=== PATIENT | female | born 1945 | race Caucasian/White ===

== ENCOUNTER → 2018-07-06 | Outpatient (CLI) | payer MEDICARE ==
[~2018-07-06] MED LIST: None per pt
[2018-07-06 11:47] LABS: MICROSCOPIC AUTO
[2018-07-06 11:48] LABS: CULTURE INDICATED? NO
[2018-07-06 11:48] LABS: BASOPHILS # (AUTO) 0.04 x10^3/uL (0-0.1); BASOPHILS % (AUTO) 1 % (0-1); EOSINOPHILS # (AUTO) 0.12 x10^3/uL (0-0.4); EOSINOPHILS % (AUTO) 2 % (1-7); LYMPHOCYTES # (AUTO) 1.75 x10^3/uL (1-3.4); LYMPHOCYTES % (AUTO) 29 % (22-44); MD NO; MEAN CORPUSCULAR HEMOGLOBIN 32.3 pg (27.0-34.8); MEAN CORPUSCULAR HGB CONC 33.9 g/dL (32.4-35.8); MEAN CORPUSCULAR VOLUME 95.3 fL (80-100); MEAN PLATELET VOLUME 9.4 fL (7.4-10.4); MONOCYTES # (AUTO) 0.42 x10^3/uL (0.2-0.8); MONOCYTES % (AUTO) 7 % (2-9); NEUTROPHILS # (AUTO) 3.61 x10^3/uL (1.8-6.8); NEUTROPHILS % (AUTO) 61 % (42-75); PLATELET COUNT 233 x10^3/uL (130-400); RED BLOOD COUNT 4.28 x10^6/uL (3.82-5.3); RED CELL DISTRIBUTION WIDTH 12.8 % (9.6-15.2)
[2018-07-06 11:59] LABS: INTERNATIONAL NORMALIZED RATIO 0.95 (0.93-1.1)
[2018-07-06 12:30] LABS: ANION GAP 6 mmol/L (5-15); CALCIUM 9.2 mg/dL (8.5-10.1); CHLORIDE 112 mmol/L (98-107); CREATININE 1.54 mg/dL (0.55-1.02)
== END | disposition home or self-care (01) ==
LOC: STAR 10:18
PROVIDERS: ATTEND Neurological Surgery
DX: Z01.818 Encounter for other preprocedural examination (principal); M48.061 Spinal stenosis, lumbar region without neurogenic claudication; R79.1 Abnormal coagulation profile
CPT/HCPCS: 36415; 71046; 80048; 81001; 85025; 85610; 85730; 93005

== ENCOUNTER 2018-07-15 08:25 | Inpatient (IN) | payer MEDICARE ==
[~2018-07-15] VITALS: Ht 165.1 cm; Wt 64.7 kg
[~2018-07-15 08:25] MED LIST changes: +BACITRACIN 50,000 UNIT ONE; +BUPIVACAINE 0.25% ONE; +BUPIVACAINE/PF-EPI 0.5% 1:200K ONE; +THROMBIN 5,000 UNIT VIAL TP ONE
[2018-07-15] MEDS ORDERED: LACTATED RINGERS 1,000 ML IV SCH (08:46)
[2018-07-15] MEDS ORDERED: GABAPENTIN 300 MG CAPSULE PO ONE (09:00)
[2018-07-15] MEDS ORDERED: ACETAMINOPHEN 500 MG TABLET PO ONE (09:00)
[2018-07-15 09:15] VITALS: BP 151/84
[2018-07-15] MEDS ORDERED: FENTANYL PF 250 MCG/5ML ONE (10:23)
[2018-07-15] MEDS ORDERED: PHENYLEPHRINE 10 MG/ML ONE (11:05)
[2018-07-15] MEDS ORDERED: SUCCINYLCHOLINE 20 MG/ML, 10ML ONE (11:05)
[2018-07-15] MEDS ORDERED: ROCURONIUM 10 MG/ML,10ML ONE (11:05)
[2018-07-15] MEDS ORDERED: FENTANYL PF 100 MCG/2ML ONE ×2 (12:06→13:01)
[2018-07-15] MEDS ORDERED: BUPIVACAINE/PF 0.25% EPIDPUSH ONE (12:08)
[2018-07-15] MEDS ORDERED: FENTANYL PF 100 MCG/2ML EPIDPUSH ONE (12:08)
[2018-07-15] MEDS ORDERED: hydrALAzine 20 MG/ML, 1ML IV PRN (12:30)
[2018-07-15] MEDS ORDERED: OXYcodone 5 MG/5 ML ORAL.SOL UDC PO PRN (12:30)
[2018-07-15] MEDS ORDERED: METOPROLOL 1 MG/ML, 5ML IV PRN (12:30)
[2018-07-15] MEDS ORDERED: MIDAZOLAM 1 MG/ML, 2ML IV PRN (12:30)
[2018-07-15] MEDS ORDERED: PROMETHAZINE 25 MG/ML, 1ML IV PRN (12:30)
[2018-07-15] MEDS ORDERED: ONDANSETRON 2MG/ML, 2ML IV PRN (12:30)
[2018-07-15] MEDS ORDERED: HYDROmorphone 2 MG/ML, 1ML IVPush PRN (12:30)
[2018-07-15] MEDS ORDERED: MEPERIDINE/PF 25MG/0.5ML IVPush PRN (12:30)
[2018-07-15] MEDS ORDERED: ALBUTEROL/IPRATROPIUM 2.5MG/0.5MG, 3 ML NPPB PRN (12:30)
[2018-07-15] MEDS ORDERED: PROPOFOL 10 MG/ML, 20ML ONE (12:41)
[2018-07-15] MEDS ORDERED: CEFAZOLIN 1,000 MG ONE (12:41)
[2018-07-15] MEDS ORDERED: DEXAMETHASONE 4 MG/ML, 1ML ONE (12:41)
[2018-07-15] MEDS ORDERED: ONDANSETRON 2MG/ML, 2ML ONE ×2 (12:41→12:55)
[2018-07-15] MEDS ORDERED: SENNA/DOCUSATE TABLET PO PRN (13:00)
[2018-07-15] MEDS ORDERED: MAGNESIUM HYDROXIDE 8%, 30ML UDC PO PRN (13:00)
[2018-07-15] MEDS ORDERED: HYDROcodone/APAP 10/325 MG TABLET PO PRN (13:00)
[2018-07-15] MEDS ORDERED: ONDANSETRON 2MG/ML, 2ML IVPush PRN (13:00)
[2018-07-15] MEDS ORDERED: METHOCARBAMOL 750 MG TABLET PO PRN (13:00)
[2018-07-15] MEDS ORDERED: PHARMACY MAY ADJ FOR RENAL FX MC PRN (13:00)
[2018-07-15] MEDS ORDERED: HYDROcodone/APAP 5/325 TABLET PO PRN (13:00)
[2018-07-15] MEDS ORDERED: DIPHENHYDRAMINE 50 MG/ML, 1ML IVPush PRN (13:00)
[2018-07-15] MEDS ORDERED: BISACODYL 10 MG SUPP PR PRN (13:00)
[2018-07-15] MEDS ORDERED: PROMETHAZINE 25 MG/ML, 1ML IM PRN (13:00)
[2018-07-15] MEDS: FENTANYL PF 100 MCG/2ML IV PRN ×2 (13:03→13:16)
[2018-07-15] MEDS ORDERED: OXYcodone 5 MG/5 ML ORAL.SOL UDC ONE (13:23)
[2018-07-15] MEDS ORDERED: HYDROmorphone 2 MG/ML, 1ML ONE (13:33)
[2018-07-15] MEDS ORDERED: ENOXAPARIN 40 MG/0.4 ML SQ SCH (15:00)
[2018-07-15] MEDS: D5%-0.9% NACL+KCL 20MEQ 1,000 ML IV SCH (15:25)
[2018-07-15] MEDS: OXYcodone/APAP 5/325MG TABLET PO PRN ×2 (15:25→20:36)
[2018-07-15 18:45] VITALS: BP 145/80
[2018-07-15] MEDS: CEFAZOLIN PMX 1GM/50ML 50 ML IVPB SCH (19:27)
[2018-07-15] MEDS: SODIUM CHLORIDE FLUSH 10ML SYR IVF SCH (20:36)
[2018-07-15] MEDS: morphine SULFATE 10 MG/ML, 1ML IVPush PRN (23:14)
[2018-07-16 00:03] VITALS: BP 123/68
[2018-07-16] MEDS: morphine SULFATE 10 MG/ML, 1ML IVPush PRN ×3 (01:41→21:15)
[2018-07-16] MEDS: CEFAZOLIN PMX 1GM/50ML 50 ML IVPB SCH (03:38)
[2018-07-16 04:56] VITALS: BP 130/70
[2018-07-16] MEDS: D5%-0.9% NACL+KCL 20MEQ 1,000 ML IV SCH ×2 (04:59→15:40)
[2018-07-16 07:03] VITALS: BP 98/56
[2018-07-16] MEDS: OXYcodone/APAP 5/325MG TABLET PO PRN ×2 (10:00→23:12)
[2018-07-16] MEDS: METHOCARBAMOL 750 MG TABLET PO SCH ×2 (10:00→17:30)
[2018-07-16] MEDS: SODIUM CHLORIDE FLUSH 10ML SYR IVF SCH ×2 (10:01→21:16)
[2018-07-16 10:56] LABS: BASOPHILS # (AUTO) 0.03 x10^3/uL (0-0.1); BASOPHILS % (AUTO) 0 % (0-1); EOSINOPHILS # (AUTO) 0.01 x10^3/uL (0-0.4); EOSINOPHILS % (AUTO) 0 % (1-7); LYMPHOCYTES # (AUTO) 1.95 x10^3/uL (1-3.4); LYMPHOCYTES % (AUTO) 17 % (22-44); MD NO; MEAN CORPUSCULAR HEMOGLOBIN 31.9 pg (27.0-34.8); MEAN CORPUSCULAR HGB CONC 32.9 g/dL (32.4-35.8); MEAN CORPUSCULAR VOLUME 97.2 fL (80-100); MEAN PLATELET VOLUME 9.8 fL (7.4-10.4); MONOCYTES # (AUTO) 0.73 x10^3/uL (0.2-0.8); MONOCYTES % (AUTO) 6 % (2-9); NEUTROPHILS # (AUTO) 8.99 x10^3/uL (1.8-6.8); NEUTROPHILS % (AUTO) 77 % (42-75); PLATELET COUNT 215 x10^3/uL (130-400); RED BLOOD COUNT 3.75 x10^6/uL (3.82-5.3); RED CELL DISTRIBUTION WIDTH 13.3 % (9.6-15.2)
[2018-07-16 11:02] LABS: ANION GAP 4 mmol/L (5-15); CALCIUM 8.4 mg/dL (8.5-10.1); CHLORIDE 118 mmol/L (98-107); CREATININE 1.64 mg/dL (0.55-1.02)
[2018-07-16 13:31] VITALS: BP 122/68
[2018-07-16 19:06] VITALS: BP 179/93
[2018-07-17 01:07] VITALS: BP 98/58
[2018-07-17] MEDS: METHOCARBAMOL 750 MG TABLET PO SCH ×3 (01:20→18:10)
[2018-07-17] MEDS: D5%-0.9% NACL+KCL 20MEQ 1,000 ML IV SCH ×2 (05:00→18:10)
[2018-07-17] MEDS: ENOXAPARIN 30 MG/0.3 ML SQ SCH (06:31)
[2018-07-17 06:45] VITALS: BP 120/60
[2018-07-17] MEDS: SODIUM CHLORIDE FLUSH 10ML SYR IVF SCH ×2 (09:41→20:29)
[2018-07-17] MEDS: OXYcodone/APAP 5/325MG TABLET PO PRN ×2 (09:53→20:28)
[2018-07-17 10:43] LABS: CREATININE 1.76 mg/dL (0.55-1.02)
[2018-07-17 12:58] VITALS: BP 125/57
[2018-07-17 18:37] VITALS: BP 148/74
[2018-07-18] MEDS: METHOCARBAMOL 750 MG TABLET PO SCH ×2 (01:50→08:48)
[2018-07-18 02:21] VITALS: BP 100/55
[2018-07-18] MEDS: ENOXAPARIN 30 MG/0.3 ML SQ SCH (06:09)
[2018-07-18 07:29] VITALS: BP 146/73
[2018-07-18] MEDS: D5%-0.9% NACL+KCL 20MEQ 1,000 ML IV SCH (07:40)
[2018-07-18] MEDS: SODIUM CHLORIDE FLUSH 10ML SYR IVF SCH (08:48)
[2018-07-18] MEDS ORDERED: METH750T87 PO (08:58)
[2018-07-18] MEDS ORDERED: OXYC-302 PO (08:58)
[2018-07-18] MEDS ORDERED: CEPH-368 PO (08:58)
[2018-07-18] MEDS: OXYcodone/APAP 5/325MG TABLET PO PRN (10:14)
[2018-07-18 12:38] VITALS: BP 134/88
== END 2018-07-18 12:37 | disposition home health service (06) | DRG 515 ==
LOC: ORIP 08:25 → EDSTATUS 11:30 → 4NOR 14:07 → DCLOUNGE 07-18 12:25
PROVIDERS: ADMIT Neurological Surgery; ATTEND Neurological Surgery
PROC: 01NB0ZZ Release Lumbar Nerve, Open Approach (ICD-10-PCS; 2018-07-15)
PROC: 0SP008Z Removal of Spacer from Lumbar Vertebral Joint, Open Approach (ICD-10-PCS; principal; 2018-07-15 11:30)
DX: T84.84XA Pain due to internal orthopedic prosthetic devices, implants and grafts, initial encounter (principal); N17.0 Acute kidney failure with tubular necrosis; M54.16 Radiculopathy, lumbar region; R32 Unspecified urinary incontinence; M48.062 Spinal stenosis, lumbar region with neurogenic claudication; M48.07 Spinal stenosis, lumbosacral region; N18.3 Chronic kidney disease, stage 3 (moderate); Y83.1 Surgical operation with implant of artificial internal device as the cause of abnormal reaction of the patient, or of later complication, without mention of misadventure at the time of the procedure; Z88.0 Allergy status to penicillin; Z88.1 Allergy status to other antibiotic agents; Z86.718 Personal history of other venous thrombosis and embolism; Z79.01 Long term (current) use of anticoagulants; Z88.8 Allergy status to other drugs, medicaments and biological substances; Z86.73 Personal history of transient ischemic attack (TIA), and cerebral infarction without residual deficits; Z86.711 Personal history of pulmonary embolism
CPT/HCPCS: 36415; 80048; 82565; 85025; G0378; J0690; J1100; J1170; J1650; J2405; J2704; J3010; J3490; J0330; J2270; J2370; J3480; J7120